=== PATIENT | male | born 1950 | race Caucasian/White ===

== ENCOUNTER 2018-10-07 10:49 | Inpatient (IN) | payer MEDICARE, BC ==
[~2018-10-07] VITALS: Ht 172.7 cm; Wt 111.6 kg
--- NOTE | ~2018-10-07 | HEMODYNAMI ---
PATIENT:SANG ANAND MEDICAL RECORD: [id number] : 46 LOCATION:[facility] D.2110 ADMISSION DATE: 10/07/18 Generatedon:10/08/20189:41 Patient name: SANG ANAND Patient #: [id number] SSN: [id number] : 1950 Date of study: 10/08/2018 Page: Of Hemodynamic Procedure Report Patient Data Patient Demographics Procedure consent was obtained First Name: SANG Gender: Male Last Name: KIKA : 1950 Middle Initial: ABHIJIT Age: 68 year(s) Patient #: [id number] Race: SSN: [id number] Additional ID: [id number] Contact details Address: [address] [place] [address] State: [place] City: [place] Zip code: [address] Past Medical History Allergies: No known allergies Admission Admission Data Admission Date: 10/07/2018 Admission Time: 12:44 Room #: D.2110 Height (in.): 68 BSA: 2.24 (m2) Height (cm.): 172.72 BMI: 37.54 (kg/m2) Weight (lbs.): 246.92 Weight (kg.): 112 Lab Results Lab Result Date: 10/08/2018 Lab Result Time: 0:00 Biochemistry Name Units Result Min Max BUN mg/dl 25 --(----)-* 7 18 Creatinine mg/dl 1.2 --(---*)-- 0.6 1.3 eGFR ml/min 64.90928 *-(----)-- 90 120 NONAFRICAN CBC Name Units Result Min Max Hematocrit % 40.5 -*(----)-- 42 54 Hemoglobin g/dl 13.8 --(*---)-- 13.5 17.5 Procedure Procedure Types Cath Procedure Diagnostic Procedure C LH w/Coronaries Sedation Charges Moderate Sedation up to 15 minutes PCI Procedure Coronary Stent Coronary Stent Initial Procedure Description Procedure Date Procedure Date: 10/08/2018 Procedure Start Time: 9:11 Procedure End Time: 9:40 Procedure Staff Name Function Efren Mcintyre RN Nurse Wil Bradshaw RN [employer] Crm Developer Marj Stiles RT Monitor Mamadou Harvey RT Scrub Karie Buck RT Scrub Pepe Coulter MD Performing Physician Procedure Data Cath Procedure Fluoroscopy Diagnostic fluoroscopy Total fluoroscopy Time: 6.3 time: 6.3 min min Diagnostic fluoroscopy Total fluoroscopy dose: dose: 1783 mGy 1783 mGy Contrast Material Contrast Material Type Amount (ml) Isovue 300 133 Entry Location Entry Primary Successful Side Size Upsize Upsize Entry Closure Waddell ccessful Closure Location (Fr) 1 (Fr) 2 (Fr) Remarks Device Remarks Radial Right 6 Fr Mechanical artery Short Compression Estimated blood loss: 10 ml Diagnostic catheters Device Type Used For End Catheter Placement DIAGNOSTIC David 110cm Procedure 5Fr catheter ([id number]) Procedure Complications No complications Procedure Medications Medication Administration Route Dosage 0.9% NaCl I.V. 100 ml/hr Oxygen etCO2 Nasal cannula 2 l/min Heparin Flush Bag added to field 2 bags (1000units/500ml NS) Lidocaine 2% added to field 20 Radial Cocktail added to field 1 syringe (Verapamil 2mg/Nitro 400mcg/Heparin 1500units) Versed I.V. 2 mg Fentanyl I.V. 100 mcg Radial Cocktail I.A. 1 syringe (Verapamil 2mg/Nitro 400mcg/Heparin 1500units) Heparin Bolus I.V. 49552 units Fentanyl I.V. 50 mcg Plavix P.O. 600 mg Hemodynamics Rest BSA: 2.24 (m2) HGB: 13.8 (g/dl) O2 Consumption: Estimated: 255.58 (ml/min) O2 Co nsumption indexed: Estimated:114.1 (ml/min/m) Heart Rate: 66 (bpm) Pressure Samples Time Site Value (mmHg) Purpose Heart Use Rate(bpm) 9:14 LV 120/-4,12 Snapshot 71 Gradients Valve Time Site Site Mean SEP/DFP Peak To Heart Use 1 2 (mmHg) (sec/min) Peak Rate (mmHg) (bpm) Aortic 9:15 LV AO 70 Snapshots Pre Cath Intra NCS Post Cath Vital Signs Time Heart Resp SPO2 etCO2 NIBP (mmHg) Rhythm Pain Sedation Rate (ipm) (%) (mmHg) Status Level (bpm) 8:54:35 60 14 98 31.4 175/82(150) NSR 0 (11) 10(A) , No pain 8:59:17 65 13 95 0.7 167/73(124) NSR 0 (11) 10(A) , No pain 9:03:49 62 15 95 14.9 146/80(111) NSR 0 (11) 10(A) , No pain 9:08:14 67 12 94 25.4 136/83(112) NSR 0 (11) 10(A) , No pain 9:12:34 62 12 94 39.6 145/83(129) NSR 0 (11) 10(A) , No pain 9:16:46 72 11 94 38.1 114/64(92) NSR 0 (11) 9(A) , No pain 9:21:04 69 12 94 38.9 131/72(114) NSR 0 (11) 9(A) , No pain 9:25:30 66 12 95 38.1 130/69(113) NSR 0 (11) 9(A) , No pain 9:31:04 66 13 96 38.1 136/69(106) NSR 0 (11) 10(A) , No pain 9:35:28 63 10 94 37.4 134/73(95) NSR 0 (11) 10(A) , No pain 9:39:57 67 12 95 39.6 155/67(121) NSR 0 (11) 10(A) , No pain Medications Time Medication Route Dose Verified Delivered Reason Note s Effectiveness by by 8:53:02 0.9% NaCl I.V. 100 Efren Efren Per physician ml/hr Francisco Javier Mcintyre RN RN 8:53:15 Oxygen etCO2 2 l/min Efren Efren for low 02 sats Nasal Lorigan Francisco Javier cannula RN RN 8:53:26 Heparin Flush added 2 bags Efren Efren used for Bag to Lorigan Francisco Javier procedure (1000units/500ml field PROCTOR RN NS) 8:53:42 Lidocaine 2% added 20ml Efren Efren for local to vial Lorigan Lorigan anesthetic field PROCTOR RN 8:53:52 Radial Cocktail added 1 Efren Efren used for (Verapamil to syringe Lorigan Lorigan procedure 2mg/Nitro RN RN 400mcg/Heparin 1500units) 9:07:02 Versed I.V. 2 mg Efren Efren for sedation Francisco Javier Mcintyre RN RN 9:07:14 Fentanyl I.V. 100 mcg Efren Efren for sedation Francisco Javier Mcintyre RN RN 9:13:32 Radial Cocktail I.A. 1 Efren Pepe for (Verapamil syringe Francisco Javier Coulter MD vasodilation 2mg/Nitro RN 400mcg/Heparin 1500units) 9:27:25 Heparin Bolus I.V. 11,000 Efren Efren for units Francisco Javier Mcintyre anticoagulation RN RN 9:31:28 Fentanyl I.V. 50 mcg Efren Efren for sedation Francisco aJvier Mcintyre RN RN 9:35:51 Plavix P.O. 600 mg Efren Efren for Francisco Javier Mcintyre antiplatelet RN RN therapy Procedure Log Time Note 8:31:17 Signed procedure consent form obtained from patient. 8:31:23 Procedure Status Urgent Heart Cath (IP). 8:31:54 Time tracking: Regular hours (M-F 7:00 - 5:00) 8:31:58 Plan of Care:Hemodynamics will remain stable., Cardiac rhythm will remain stable., Comfort level will be maintained., Respiratory function will remain adequate., Patient/ family verbilizes understanding of procedure., Procedure tolerated without complication., Recovers from procedure without complications.. 8:32:12 Wil Bradshaw RN sent for patient. Start room use. 8:38:05 Lab Result : eGFR NONAFRICAN 64.30470 ml/min 8:38:05 Lab Result : Creatinine 1.2 mg/dl 8:38:05 Lab Result : BUN 25 mg/dl 8:38:05 Lab Result : Hematocrit 40.5 % 8:38:05 Lab Result : Hemoglobin 13.8 g/dl 8:38:15 Patient allergic to No known allergies 8:38:27 Patient Weight : 246.92 lbs 8:38:32 Patient Height : 68 inches 8:45:54 Patient received from Med II to CCL 1 Alert and oriented. Tansferred to table in Supine position. 8:45:55 Warm blankets applied, and elliott hugger turned on for patient comfort. 8:45:56 Correct patient and procedure confirmed by team. 8:45:56 ECG and BP/O2 sat monitors applied to patient. 8:50:00 H&P Date Dictated: 10/07/2018 Within 30 days and on chart., H&P Addendum completed by physician on day of procedure. (MUST COMPLETE FOR ALL OUTPATIENTS). 8:50:02 Pre-procedure instructions explained to patient. 8:50:03 Pre-op teaching completed and patient verbalized understanding. 8:50:15 Family in patients room. 8:50:26 Patient NPO since Midnight. 8:50:42 Is patient on blood thinner?No 8:50:44 Patient diabetic? Yes. 8:50:45 If diabetic: On Metformin? No 8:50:52 Previous problem with sedation/anesthesia? No ? 8:51:00 Snore? Yes 8:51:02 Sleep apnea? No 8:51:19 Deviated septum? No 8:51:32 Opens mouth fully? Yes 8:51:33 Sticks out tongue? Yes 8:51:35 Airway obstruction? Yes COPD 8:51:50 Dentures? No ? 8:52:15 Pre procedure: right dorsailis pedis pulse 1+ Palpable, but thready & weak; easily obliterated 8:52:17 Modified Ramesh's test Ulnar < 7 seconds 8:52:19 Patient pain scale 0/10 ?. 8:52:24 IV patent on arrival in right antecubital with 0.9% NaCl at O. 8:52:28 Lab results completed and on chart. 8:52:31 Right Radial & Right Groin area was prepped with chlora-prep and draped in sterile fashion 8:52:32 Alarms reviewed by R. N. 8:52:33 Sharps counted by scrub and verified by R.N. 8:52:40 Use device set Radial Dx or PCI 8:52:41 ACIST Syringe (36956) opened to sterile field. 8:52:48 Bag Decanter () opened to sterile field. 8:52:49 ACIST Hand Control (11939) opened to sterile field. 8:52:49 ACIST Manifold (39468) opened to sterile field. 8:52:50 Tegaderm 4 x 4 (1626W) opened to sterile field. 8:52:50 Medline Cath Pack ([id number]) opened to sterile field. 8:52:53 MBrace Wrist Support ([id number]) opened to sterile field. 8:52:53 NEEDLE Cook 21G 4cm Radial (Q15640) opened to sterile field. 8:52:56 EMERALD Guide Wire (888-312) opened to sterile field. 8:52:56 SHEATH 6FR RAIN (6899267) opened to sterile field. 8:53:02 0.9% NaCl 100 ml/hr I.V. was administered by Efren Mcintyre RN; Per physician; 8:53:04 Vital chart was started 8:53:06 Baseline sample Acquired. 8:53:11 Rhythm: sinus rhythm 8:53:12 Full Disclosure recording started 8:53:15 Oxygen 2 l/min etCO2 Nasal cannula was administered by Efren Mcintyre RN; for low 02 sats; 8:53:26 Heparin Flush Bag (1000units/500ml NS) 2 bags added to field was administered by Efren Mcintyre RN; used for procedure; 8:53:42 Lidocaine 2% 20ml vial added to field was administered by Efren Mcintyre RN; for local anesthetic; 8:53:52 Radial Cocktail (Verapamil 2mg/Nitro 400mcg/Heparin 1500units) 1 syringe added to field was administered by Efren Mcintyre RN; used for procedure; 9:04:38 --------ALL STOP TIME OUT------ 9:04:38 Final Timeout: patient, procedure, and site verified with staff and physician. All members of the team are in agreement. 9:04:39 Right Radial & Right Groin site verified by team. 9:04:43 Fire Safety Assessment: A--An alcohol-based skin anteseptic being used preoperatively., C--Open oxygen or nitrous oxide is being used., D--An ESU, laser, or fiber-optic light is being used. 9:05:04 Physical assessment completed. ASA score P 2 - A patient with mild systemic disease as per Pepe Coulter MD. 9:05:07 2) 60-89 Mildly reduced kidney function, and other findings (as for stage 1) point to kidney disease. 9:05:11 Maximum allowable contrast dose (3.7 X eGFR X 0.75)178 ml. 9:05:14 Sedation plan: IV Moderate Sedation Medication:Versed, Fentanyl 9:05:17 Timer 1 started at 8:55 AM, stopped at 9:05 AM, duration 00:09:45 sec. 9:06:11 Zero performed for pressure channel P1 9:07:02 Versed 2 mg I.V. was administered by Efren Mcintyre RN; for sedation; 9:07:14 Fentanyl 100 mcg I.V. was administered by Efren Mcintyre RN; for sedation; 9:10:40 Procedure started. 9:11:31 Local anesthetic to right radial artery with Lidocaine 2% by Efren Mcintyre RN.INITIAL ACCESS ONLY 9:12:24 A 6 Fr Short sheath was inserted into the Right Radial artery 9:13:14 A DIAGNOSTIC David 110cm 5Fr catheter (333390) was advanced over the wire and used for Procedure. 9:13:32 Radial Cocktail (Verapamil 2mg/Nitro 400mcg/Heparin 1500units) 1 syringe I.A. was administered by Pepe Coulter MD; for vasodilation; 9:14:20 LV gram done using STONE 9:14:22 Injector settings: Ml/sec: 5, Volume: 15, 9:14:54 LV hemodynamics recorded. 9:15:19 EF : 60 % 9:16:57 LCA angiography performed. 9:18:50 RCA angiography performed. 9:22:03 Catheter exchanged over wire. 9:23:09 Proceeding to intervention. 9:23:12 INFLATOR Merit BasixCompak (VW6415) opened to sterile field. 9:23:12 TUBING High Pressure Extension Tubing (Yfn) (GW6934I) opened to sterile field. 9:23:13 BMW 300cm Straight [place] 2 wire (4213762) opened to sterile field. 9:25:17 GUIDE 6FR XBLAD 3.5 catheter ([id number]) opened to sterile field. 9:25:30 6 Fr XBLAD 3.5 guide catheter was inserted over the wire 9:27:25 Heparin Bolus 11,000 units I.V. was administered by Efren Mcintyre RN; for anticoagulation; 9:27:36 BMW 300 wire advanced. 9:29:31 Wire advanced across lesion. 9:31:28 Fentanyl 50 mcg I.V. was administered by Efren Mcintyre RN; for sedation; 9:33:04 Place stent Inflation Number: 1 A PAULA OTW 3.5 x 18 stent ([id number]) was prepped and advanced across the Prox LAD 90. The stent was deployed at 14 DEA for 0:00 (min:sec) 0. 9:33:38 Stent catheter was removed intact over wire. 9:33:53 Wire removed. 9:33:54 Guide catheter removed. 9:34:47 Procedure ended.(Physican Out) 9:34:54 TR BAND Standard (OBY60PVC) opened to sterile field. 9:35:03 Fluoroscopy time 06.30 minutes. 9:35:07 Fluoroscopy dose: 1783 mGy 9:35:07 Flurop Dose total: 1783 9:35:13 Dose Area Product 59168 mGy/cm. 9:35:17 Contrast amount:Isovue 300 133ml. 9:35:19 Maximum allowable dose exceeded? No. 9:35:22 Sharps counted by scrub and verified by R.N. 9:35:51 Plavix 600 mg P.O. was administered by Efren Mcintyre RN; for antiplatelet therapy; 9:36:02 Sheath removed intact; hemostasis achieved with Mechanical Compression to the Right Radial artery. 9:36:15 TR band inflated with 9cc of air. 9:36:21 Post-procedure physical assessment completed. ASA score P 2 - A patient with mild systemic disease as per Pepe Coulter MD. 9:36:26 Post procedure rhythm: sinus rhythm 9:36:29 Estimated blood loss: 10 ml 9:36:30 Post procedure instruction explained to patient.Patient verbalizes understanding. 9:36:30 Patient needs reinforcement of post procedure teaching. 9:37:15 Procedure type changed to Cath procedure, Diagnostic procedure, LHC, LHC w/Coronaries, Sedation Charges, Moderate Sedation up to 15 minutes, PCI procedure, Coronary Stent, Coronary Stent Initial 9:38:07 Procedure and supply charges have been captured, reviewed, submitted and are correct. 9:38:10 Procedure Complication : No complications 9:39:57 Vital chart was stopped 9:39:57 See physician's report for complete and final results. 9:39:59 Report given to Med II. 9:40:02 Patient transfered to Med II with Bed. 9:40:04 Procedure ended. 9:40:04 Full Disclosure recording stopped 9:40:14 End room use (Document Last) Intervention Summary Intervention Notes Time ActionType Lesion and Equipment Action# Pressure Duration Attributes Used 9:33:04 Place stent Prox LAD PAULA OTW 3.5 1 14 00:00 x 18 stent ([id number]) Device Usage Item Name Manufacture Quantity Catalog Hospital Part Current Mini mal Lot# / Number Charge Number Stock Stock Serial# Code ACIST Syringe Acist 1 80573 176066 802849 557627 20 (53988) Medical Systems Inc Bag Decanter Microtek 1 2001S 007209 05347 030270 5 (2001S) Medical Inc. ACIST Hand Acist 1 00538 891826 254653 864123 5 Control Medical (94310) Systems Inc ACIST Acist 1 18803 278404 242573 757055 5 Manifold Medical (61401) Systems Inc Tegaderm 4 x 3M 1 1626W 162337 858253 869409 5 4 (1626W) Medline Cath Medline 1 [id number] 399247 36874 784505 5 Pack ([id number]) MBrace Wrist Advanced 1 140-0250-00 132776 22824 007134 5 Support Vascular (101410272) Dynamics NEEDLE Cook [place] Medical 1 U68889 102210 894336 072819 5 21G 4cm Radial (Q17378) EMERALD Guide Cardinal 1 502-455 872607 493226 711826 5 Wire Health (502-455) SHEATH 6FR Cardinal 1 5725985 650437 1042251 689136 5 [facility] (7357187) DIAGNOSTIC Terumo 1 40-5023 007188 263823 313736 5 David 110cm 5Fr catheter (550670) INFLATOR Merit 1 JX0764 848344 667351 754195 15 Merit Medical BasixCompak (FQ4749) TUBING High Merit 1 FY7851B 894863 92146 576652 10 Pressure Medical Extension Tubing (Coulter) (ZO6671G) BMW 300cm Macdonald 1 9659165 680910 330721 565086 5 Straight Vascular [place] 2 wire (8201955) GUIDE 6FR Cardinal 1 75518773 858433 353307 683236 10 XBLAD 3.5 Health catheter (78232338) PAULA OTW 3.5 Medtronic 1 [id number] 696231 2983805 956218 5 [id number] x 18 stent ([id number]) TR BAND Terumo 1 [id number] 651029 359792 416392 40 Standard (AIL09PUX) Signature Audit [place] Stage Time Signature Unsigned Intra-Procedure 10/08/2018 Marj Stiles 9:41:22 AM RT(R) Signatures Nurse : Efren Mcintyre Signature : RN Date : Time : Monitor : Marj Stiles Signature : RT Date : Time : Performing Physician : Signature : Pepe Coulter MD Date : Time : [address] [place] [address]
[2018-10-07] MEDS ORDERED: ACEBUTOLOL HCL200 MG PO (11:00)
[2018-10-07] MEDS ORDERED: HYTRIN10 MG PO (11:00)
[2018-10-07] MEDS ORDERED: LIPITOR40 MG PO (11:00)
[2018-10-07] MEDS ORDERED: OMEPRAZOLE20 M1 PO (11:00)
[2018-10-07] MEDS ORDERED: ZYLOPRIM100 MG PO (11:01)
[2018-10-07] MEDS ORDERED: COZAAR100 MG PO (11:01)
[2018-10-07] MEDS ORDERED: TRICOR48 MG PO (11:01)
[2018-10-07] MEDS ORDERED: LYRICA100 MG PO (11:01)
[2018-10-07] MEDS ORDERED: HUMULIN R100 U/ML SC (11:02)
[2018-10-07 11:16] LABS: BASOPHILS 0.2 % (0-2); EOSINOPHILS 1.7 % (0-7); HEMATOCRIT 41.7 % (42.0-54.0); HEMOGLOBIN 14.4 g/dL (13.5-17.5); IMMATURE GRANULOCYTES 0.3 % (0-5); LYMPHOCYTES 26.3 % (15-50); MCH 32.4 pg (26.0-34.0); MCHC 34.5 g/dL (31.0-37.0); MCV 93.7 fL (80.0-100.0); MEAN PLATELET VOLUME 10.5 fL (7.4-10.4); MONOCYTES 8.9 % (2-11); NEUTROPHILS 62.6 % (40-80); PLATELET COUNT 104 10x3/uL (130-400); RBC 4.45 10x6/uL (4.20-6.10); RDW 13.8 % (11.5-14.5)
[2018-10-07 11:24] LABS: APTT 30.2 SECONDS (22.8-39.4); INR 1.08 (0.85-1.17); PROTIME 13.5 SECONDS (11.6-15.0)
[2018-10-07 11:31] LABS: ALBUMIN 3.3 g/dL (3.4-5.0); ALKALINE PHOSPHATASE 73 U/L (46-116); ALT (SGPT) 49 U/L (10-68); BILIRUBIN - TOTAL 0.78 mg/dL (0.2-1.3); CALC OSMOLALITY 294 mosm/kg (275-300); CALCIUM 9.3 mg/dL (8.5-10.1); CARBON DIOXIDE 27.2 mmol/L (21.0-32.0); CHLORIDE - SERUM 107 mmol/L (98-107); CREATININE - SERUM 1.3 mg/dL (0.6-1.3); GLUCOSE 272 mg/dL (74-106); POTASSIUM - SERUM 3.9 mmol/L (3.5-5.1); PROTEIN - SERUM 6.5 g/dL (6.4-8.2); SODIUM 141 mmol/L (136-145); UREA NITROGEN 23 mg/dL (7-18); eGFR NON AFRICAN AMERICAN 58 mL/min (90-120)
[2018-10-07 11:43] LABS: CREATINE KINASE 94 UL (21-232); MAGNESIUM - SERUM 1.7 mg/dL (1.8-2.4)
[2018-10-07 11:44] LABS: TROPONIN-I < 0.017 ng/mL (0.000-0.060)
--- NOTE | 2018-10-07 12:08 | NUR ---
NTG HELD, PT REPORTS NO PAIN AT PRESENT
[2018-10-07 12:51] VITALS: BP 151/75
[2018-10-07 13:01] VITALS: BP 143/61
--- NOTE | 2018-10-07 13:22 | NUR ---
RECEIVED PATIENT TO UNIT VIA WHEELCHAIR FROM ER. PATIENT ADMITTED TO ROOM 2109. PATIETN ACCOMAPANIED BY SPOUSE AND DAUGHTER. CALL LIGHT WITHIN REACH. PATIENT ASSISTED TO BED. NO DISTRESS.
--- NOTE | 2018-10-07 13:37 | NUR ---
FSBS 215. TELEMETRY APPLIED.
--- NOTE | 2018-10-07 14:47 | NUR ---
FSBS 215. 12 UNITS HUMULIN R ADMINISTERED PER SLIDING SCALE.
--- NOTE | 2018-10-07 15:01 | NUR ---
AT BEDSIDE FOR REFERRAL.
--- NOTE | 2018-10-07 15:27 | NUR ---
TELEMETRY REAPPLIED. LEADS FELL OFF WHILE PATIENT UP AMBULATING TO THE RESTROOM. NO DISTRESS.
[2018-10-07 15:47] VITALS: BP 143/61; BMI 37.5
[2018-10-07 16:48] LABS: CKMB 1.5 U/L (0.0-3.6); CREATINE KINASE 84 UL (21-232); TROPONIN-I < 0.017 ng/mL (0.000-0.060)
--- NOTE | 2018-10-07 17:08 | NUR ---
CONSENTS SIGNED AND ON THE CHART FOR HEAR CATH IN THE AM.
[2018-10-07 17:59] VITALS: BP 147/70
--- NOTE | 2018-10-07 19:20 | NUR ---
RECIEVED UP IN B/R. ALERT AND ORIENTED X4. DOES NOT USE CALL LIGHT FOR ASSIST. IV TO RIGHYT HAND SL.. TELEMETRY IN PLACE. EDUCATED ON NPO STATUS WITH VERBAL UNDERSTANDING. DENIES ANY NEEDS AT THIS TIME.
[2018-10-07 20:00] VITALS: BP 153/71
[2018-10-07 23:03] LABS: CREATINE KINASE 86 UL (21-232)
[2018-10-07 23:15] LABS: TROPONIN-I < 0.017 ng/mL (0.000-0.060)
[2018-10-08] VITALS: BP 129/69
[2018-10-08 04:00] VITALS: BP 163/77
[2018-10-08 05:40] LABS: BASOPHILS 0.1 % (0-2); EOSINOPHILS 1.3 % (0-7); HEMATOCRIT 40.5 % (42.0-54.0); HEMOGLOBIN 13.8 g/dL (13.5-17.5); IMMATURE GRANULOCYTES 0.3 % (0-5); LYMPHOCYTES 21.1 % (15-50); MCH 32.1 pg (26.0-34.0); MCHC 34.1 g/dL (31.0-37.0); MCV 94.2 fL (80.0-100.0); MEAN PLATELET VOLUME 10.9 fL (7.4-10.4); NEUTROPHILS 66.2 % (40-80); PLATELET COUNT 111 10x3/uL (130-400); WBC 6.7 10x3/uL (4.8-10.8)
[2018-10-08 06:02] LABS: CALC OSMOLALITY 298 mosm/kg (275-300); CALCIUM 9.1 mg/dL (8.5-10.1); CARBON DIOXIDE 26.6 mmol/L (21.0-32.0); CHLORIDE - SERUM 107 mmol/L (98-107); CKMB 1.3 U/L (0.0-3.6); CREATINE KINASE 80 UL (21-232); CREATININE - SERUM 1.2 mg/dL (0.6-1.3); GLUCOSE 271 mg/dL (74-106); SODIUM 143 mmol/L (136-145); TROPONIN-I < 0.017 ng/mL (0.000-0.060); UREA NITROGEN 25 mg/dL (7-18); eGFR NON AFRICAN AMERICAN 64 mL/min (90-120)
[2018-10-08 08:30] VITALS: BP 145/68
--- NOTE | 2018-10-08 08:44 | NUR ---
PRE-OP MEDS GIVEN AT THIS TIME. PT TO ROLL TUBE SETTER VIA BED, NAD NOTED.
--- NOTE | 2018-10-08 10:07 | NUR ---
RECEIVED PT BACK TO ROOM, 2109, PT STILL A LITTLE DROWSY BUT EASILY AROUSES TO VOICE. VITAL SIGNS STABLE, PLACED ON FREQUENT VITAL SIGNS. TR BAND TO RT WRIST, DRESSING CDI. PT DENIES ANY NEEDS AT THIS TIME. CALL LIGHT IN REACH, NAD NOTED, WILL CONTINUE TO MONTIOR.
[2018-10-08 12:06] VITALS: BP 143/70
--- NOTE | 2018-10-08 12:27 | NUR ---
BLOOD SUGAR OF 380, 24UNITS GIVEN PER S/S. ALSO GAVE 80UNITS OF LANTUS. PT RESTING COMFORTABLY IN BED, NO CHANGES FROM PREVIOUS ASSESSMENT TO RT WRIST. TR BAND IN PLACE. PT DENIES, ANY NEEDS AT THIS TIME. CALL LIGHT IN REACH, FAMILY AT BEDSIDE, NAD NOTED, WILL CONTINUE TO MONITOR.
[2018-10-08 13:47] VITALS: Ht 172.7 cm; Wt 111.6 kg
[2018-10-08] MEDS ORDERED: PLAVIX75 MG PO (14:21)
[2018-10-08] MEDS ORDERED: PROTONIX20 MG PO (14:22)
--- NOTE | 2018-10-08 14:29 | NUR ---
TR BAND REMOVED COMPLETELY, NO BLEEDING NOTED. PLACED 2X2 AND COVERED WITH BANDADE. PT RESTING COMFORTABLY, DENIES ANY NEEDS AT THIS TIME. CALL LIGHT IN REACH, NAD NOTED, WILL CONITNUE TO MONITOR.
--- NOTE | 2018-10-08 16:11 | NUR ---
PROVIDED VERBAL AND WRITTEN DISCHARGE TEACHING TO PT AND FAMILY AT BEDSIDE, ALL VERBALIZED UNDERSTANDING REGARDING TEACHING. D/C RT AC IV WITH CATHETER TIP INTACT. BLOOD SUGAR OF 318, GAVE 20UNITS OF INSULIN PER S/S. PT WANTS TO EAT DINNER AND THEN WILL NOTIFY THIS NURSE WHEN READY FOR WHEELCHAIR.
--- NOTE | 2018-10-08 17:33 | NUR ---
PT LEFT UNIT VIA WHEELCHAIR, WITH ALL BELONGINGS, ACCOMPANIED BY FAMILY, NAD NOTED.
--- NOTE | 2018-10-08 18:02 | MORECARE ---
CASE MANAGEMENT DISCHARGE SUMMARY PATIENT: SANG ANAND UNIT: [id number] ADM DATE: 10/07/18 AGE: 68 : [birth year] SEX: M ROOM/BED: D.2110 AUTHOR: CHUYITA,DOC PHYSICIAN: REFERRING PHYSICIAN: SANG FERRIS MD DATE OF SERVICE: 10/08/18 Discharge Plan Patient Name: SANG ANAND Facility: [facility]:[place] : 1950 Planned Disposition: Home Anticipated Discharge Date: 10/08/18 Discharge Date: 10/08/2018 Expected LOS: 1 Initial Reviewer: [email or web address] Initial Review Date: 10/08/2018 Generated: 10/08/18 7:01 pm Comments DCP- Discharge Planning Updated by [email or web address]: Arturo Sy on 10/08/18 4:[address] Patient Name: SANG ANAND Admission Status: ER Accout number: [id number] Admission Date: 10-07-2018 : 1950 Admission Diagnosis: Attending: SANG FERRIS Current LOS: 1 Anticipated DC Date: 10-08-2018 Planned Disposition: Home Primary Insurance: MEDICARE A & B Discharge Planning Comments: CM MET WITH PT IN ROOM TO DISCUSS DISCHARGE PLANNING AND NEEDS. SANG ANAND provided verbal consent to discuss current and ongoing needs with/in the presence of: SPOUSE, MARGARETTE. PT REPORTS LIVING AT HOME INDEPENDENTLY WITH HIS . PT HAS NO MEDICAL EQUIPMENT AND NO OUTSIDE SERVICES ASSISTING IN THE HOME. CM DISCUSSED AVAILABILITY OF HOME HEALTH, REHAB SERVICES AND MEDICAL EQUIPMENT. PT DENIES DISCHARGE NEEDS, REPORTS HIS WILL PICK HIM UP FOR DISCHARGE HOME. Hematology Nurse Educator: Arturo Sy DCPIA - Discharge Planning Initial Assessment Updated by [email or web address]: Arturo Sy on 10/08/18 5:56 pm * Is the patient Alert and Oriented? Yes * How many steps to enter\exit or inside your home? NONE * PCP DR. CID * Pharmacy [facility] * Preadmission Environment Home with Family * ADLs Independent * Equipment None * Other Equipment NO MEDICAL EQUIPMENT PROVIDER PREFERENCE * List name and contact numbers for known caregivers / representatives who currently or will assist patient after discharge: MARGARETTE ANAND, SPOUSE, * Verbal permission to speak to the caregivers and representatives has been obtained from the patient. Yes * Community resources currently utilized None * Please name any agencies selected above. NONE * Additional services required to return to the preadmission environment? No * Can the patient safely return to the preadmission environment? Yes * Has this patient been hospitalized within the prior 30 days at any hospital? No Patient Name: SANG ANAND Page 60218 at 1802 All edits/amendments must be made on the electronic document DICTATION DATE: 10/08/181800 VISION MIXER: [email or web address] 10/08/181800 RPT#: [id number] DC DATE:10/08/18 STATUS: DIS IN [facility] [address] [place] [address] END OF REPORT
== END 2018-10-08 17:41 | disposition home or self-care (01) | DRG 247 ==
LOC: D.ER 10:49 → D.M2 12:44
PROVIDERS: Emergency Medicine; Internal Medicine Cardiovascular Disease; ADMIT Family Medicine; ATTEND Family Medicine
PROC: B2111ZZ Fluoroscopy of Multiple Coronary Arteries using Low Osmolar Contrast (ICD-10-PCS; 2018-10-08)
PROC: B2151ZZ Fluoroscopy of Left Heart using Low Osmolar Contrast (ICD-10-PCS; 2018-10-08)
PROC: 027034Z Dilation of Coronary Artery, One Artery with Drug-eluting Intraluminal Device, Percutaneous Approach (ICD-10-PCS; principal; 2018-10-08 08:32)
PROC: 4A023N7 Measurement of Cardiac Sampling and Pressure, Left Heart, Percutaneous Approach (ICD-10-PCS; 2018-10-08 08:32)
DX: I25.110 Atherosclerotic heart disease of native coronary artery with unstable angina pectoris (principal); J98.11 Atelectasis; E11.9 Type 2 diabetes mellitus without complications; Z79.4 Long term (current) use of insulin; I45.10 Unspecified right bundle-branch block; I49.3 Ventricular premature depolarization; I10 Essential (primary) hypertension; E78.5 Hyperlipidemia, unspecified; R00.8 Other abnormalities of heart beat

== ENCOUNTER 2019-10-31 06:44 | Day surgery (SDC) | payer MEDICARE, BC ==
[~2019-10-31] VITALS: Ht 170.2 cm; Wt 111.5 kg
--- NOTE | ~2019-10-31 | HEMODYNAMI ---
PATIENT:SANG ANAND MEDICAL RECORD: [id number] : 46 LOCATION:D.CAT ADMISSION DATE: 10/31/19 Generatedon:10/31/20199:18 Patient name: SANG ANAND Patient #: [id number] SSN: [id number] : 1950 Date of study: 10/31/2019 Page: Of Hemodynamic Procedure Report Patient Data Patient Demographics Procedure consent was obtained First Name: SANG Gender: Male Last Name: KIKA : 1950 [facility] Initial: ABHIJIT Age: 69 year(s) Patient #: [id number] Race: SSN: [id number] Additional ID: [id number] Contact details [address]: [address] [place] [address] State: [place] City: [place] Zip code: [address] Past Medical History Allergies Allergen Reaction Date Comments Reported Other allergy 10/31/2019 NKDA Admission Admission Data Admission Date: 10/31/2019 Admission Time: 6:44 Arrival Date: 10/31/2019 Arrival Time: 0:00 Height (in.): 68 BSA: 2.2 (m2) Height (cm.): 172.72 BMI: 36.19 (kg/m2) Weight (lbs.): 238 Weight (kg.): 107.95 Lab Results Lab Result Date: 10/31/2019 Lab Result Time: 0:00 Biochemistry Name Units Result Min Max BUN mg/dl 22 --(----)-* 7 18 Creatinine mg/dl 1.2 --(---*)-- 0.6 1.3 eGFR ml/min 63 *-(----)-- 90 120 NONAFRICAN CBC Name Units Result Min Max Hematocrit % 41 -*(----)-- 42 54 Hemoglobin g/dl 13.7 --(*---)-- 13.5 17.5 Procedure Procedure Types Cath Procedure Diagnostic Procedure [facility] w/Coronaries Sedation Charges Moderate Sedation up to 30 minutes Procedure Description Procedure Date Procedure Date: 10/31/2019 Procedure Start Time: 8:49 Procedure End Time: 9:15 Procedure Staff Name Function Pepe Coulter MD Performing Physician Chayito Granda RT Scrub Laya August RT Monitor Marj Stiles RT Erecting Crane Operator Nika Amador RN Nurse Indication CAD Procedure Data Cath Procedure Fluoroscopy Diagnostic fluoroscopy Total fluoroscopy Time: 2.4 time: 2.4 min min Diagnostic fluoroscopy Total fluoroscopy dose: 915 dose: 915 mGy mGy Contrast Material Contrast Material Type Amount (ml) Isovue 300 57 Entry Location Entry Primary Successful Side Size Upsize Upsize Entry Closure Succe ssful Closure Location (Fr) 1 (Fr) 2 (Fr) Remarks Device Remarks Femoral Right 5 Fr Perclose artery ProGlide Estimated blood loss: 5 ml Diagnostic catheters Device Type Used For End Catheter Placement MULTIPACK JL 4.0 5Fr Left Coronary catheter Angiography MULTIPACK 3DRC 5Fr Right Coronary catheter Angiography MULTIPACK Pigtail 5 Fr LV Angiography catheter Procedure Complications No complications Procedure Medications Medication Administration Route Dosage Oxygen NC 2 l/min Lidocaine 2% added to field 20 Heparin Flush Bag added to field 2 bags (1000units/500ml NS) 0.9% NaCl I.V. 100 ml/hr Versed I.V. 1 mg Fentanyl I.V. 50 mcg Versed I.V. 1 mg Fentanyl I.V. 50 mcg Hemodynamics Rest BSA: 2.2 (m2) HGB: 13.7 (g/dl) O2 Consumption: Estimated: 243.92 (ml/min) O2 Con sumption indexed: Estimated:110.87 (ml/min/m) Heart Rate: 58 (bpm) Pressure Samples Time Site Value (mmHg) Purpose Heart Use Rate(bpm) 8:56 LV 123/0,10 Snapshot 67 Gradients Valve Time Site Site Mean SEP/DFP Peak To Heart Use 1 2 (mmHg) (sec/min) Peak Rate (mmHg) (bpm) Aortic 8:57 LV AO 65 Snapshots Pre Cath Intra NCS Post Cath Vital Signs Time Heart Resp SPO2 etCO2 NIBP (mmHg) Rhythm Pain Sedation Rate (ipm) (%) (mmHg) Status Level (bpm) 8:21:13 57 17 99 34.4 147/73(118) NSR 0 (11) 10(A) , No pain 8:25:33 59 13 95 20.2 137/72(108) NSR 0 (11) 10(A) , No pain 8:29:51 60 12 95 34.5 127/68(95) NSR 0 (11) 10(A) , No pain 8:34:05 59 23 95 36 136/68(112) NSR 0 (11) 10(A) , No pain 8:38:21 61 17 95 23.2 117/69(97) NSR 0 (11) 10(A) , No pain 8:42:33 60 14 95 19.4 124/64(104) NSR 0 (11) 10(A) , No pain 8:46:45 60 13 93 38.2 117/70(87) NSR 0 (11) 10(A) , No pain 8:50:53 63 14 96 37.4 123/74(106) NSR 0 (11) 9(A) , No pain 8:55:05 64 12 95 13.5 128/69(104) NSR 0 (11) 9(A) , No pain 8:59:17 61 14 96 28.4 131/73(105) NSR 0 (11) 9(A) , No pain 9:03:31 61 13 96 23.9 137/72(101) NSR 0 (11) 9(A) , No pain 9:07:47 61 12 96 12.7 125/74(106) NSR 0 (11) 10(A) , No pain 9:11:56 58 16 97 31.5 128/73(101) NSR 0 (11) 10(A) , No pain Medications Time Medication Route Dose Verified Delivered Reason Notes Effec tiveness by by 8:20:06 Oxygen NC 2 Pepe Nika for low 02 l/min Yfn Amador sats RN 8:20:16 Lidocaine 2% added 20ml Pepe Pepe for local to vial Yfn Coulter MD anesthetic field 8:20:26 Heparin Flush added 2 Pepe Pepe used for Bag to bags Yfn Coulter MD procedure (1000units/500ml field NS) 8:20:41 0.9% NaCl I.V. 100 Pepe Nika used for ml/hr Yfn Amador dining chair seat cushion trimmer 8:46:58 Versed I.V. 1 mg Pepe Nika for Yfn Amador sedation RN 8:47:06 Fentanyl I.V. 50 Pepe Nika for mcg Yfn Amador sedation RN 8:51:20 Versed I.V. 1 mg Pepe Nika for Yfn Amador sedation RN 8:51:36 Fentanyl I.V. 50 Pepe Nika for mcg Yfn Amador sedation captain's assistant Log Time Note 7:59:47 Informed consent obtained and on chart 8:05:43 Indication : CAD 8:05:53 Arrival Date: 10/31/2019 12:00:00 AM 8:06:07 Patient Height : 68 inches 8:06:10 Patient Weight : 238 lbs 8:06:42 Procedure Status Elective Heart Cath (OP). 8:06:45 Time tracking: Regular hours (M-F 7:00 - 5:00) 8:08:48 Patient allergic to Other allergyNKDA 8:08:57 H&P Date Dictated: 10/31/2019 H&P Addendum completed by physician on day of procedure. (MUST COMPLETE FOR ALL OUTPATIENTS), New H&P dictated by physician.. 8:09:08 Plan of Care:Hemodynamics will remain stable., Cardiac rhythm will remain stable., Comfort level will be maintained., Respiratory function will remain adequate., Patient/ family verbilizes understanding of procedure., Procedure tolerated without complication., Recovers from procedure without complications.. 8:09:29 Chayito PATEL(R) sent for patient. Start room use. 8:12:32 Patient received from Pre/Post Procedure Room to [facility] 2 Alert and oriented. Tansferred to table in Supine position. 8:12:39 Warm blankets applied, and elliott hugger turned on for patient comfort. 8:12:40 Correct patient and procedure confirmed by team. 8:12:41 ECG and BP/O2 sat monitors applied to patient. 8:19:55 Vital chart was started 8:20:06 Oxygen 2 l/min NC was administered by Nika Amador RN; for low 02 sats; Verbal order read back and verified. 8:20:16 Lidocaine 2% 20ml vial added to field was administered by Pepe Coulter MD; for local anesthetic; Verbal order read back and verified. 8:20:26 Heparin Flush Bag (1000units/500ml NS) 2 bags added to field was administered by Pepe Coulter MD; used for procedure; Verbal order read back and verified. 8:20:41 0.9% NaCl 100 ml/hr I.V. was administered by Nika Amador RN; used for procedure; Verbal order read back and verified. 8:21:25 Baseline sample Acquired. 8::29 Rhythm: sinus bradycardia 8::30 8::31 Full Disclosure recording started 8::31 Pre-procedure instructions explained to patient. 8:21:32 Pre-op teaching completed and patient verbalized understanding. 8:21:36 Family in patients room. 8::41 Patient NPO since Midnight. 8:22:20 Is patient on blood thinner?Yes 8:22:25 ACC The patient was administered the following blood thiners within the last 24 hours: ACCEffient 8:22:27 Patient diabetic? No. 8:22:30 Previous problem with sedation/anesthesia? No ? 8:22:31 Snore? Yes 8:22:34 Sleep apnea? No 8:22:35 Deviated septum? No 8:22:40 Opens mouth fully? Yes 8:22:41 Sticks out tongue? Yes 8:23:08 Airway obstruction? No ? 8:23:11 Dentures? No ? 8:23:22 Pre procedure: right dorsailis pedis pulse 1+ Palpable, but thready & weak; easily obliterated 8:24:29 IV patent on arrival in left forearm with 0.9% NaCl at [facility]. 8:24:56 Right groin area was prepped with chlora-prep and draped in sterile fashion 8::57 Alarms reviewed by Gulshan N. 8::57 Sharps counted by scrub and verified by R.N. 8:27:23 Lab Result : BUN 22 mg/dl 8::23 Lab Result : Creatinine 1.2 mg/dl 8::23 Lab Result : eGFR NONAFRICAN 63 ml/min 8:27:23 Lab Result : Hemoglobin 13.7 g/dl 8:27:23 Lab Result : Hematocrit 41 % 8:27:34 Lab results completed and on chart. 8:27:51 Use device set Femoral Dx 8:27:53 ACIST Syringe (38871) opened to sterile field. 8:27:54 Bag Decanter (2002S) opened to sterile field. 8:27:55 Medline Cath Pack ([id number]) opened to sterile field. 8:27:57 ACIST Hand Control (69525) opened to sterile field. 8:27:57 ACIST Manifold (70135) opened to sterile field. 8:27:59 DIAGNOSTIC Multipack 5Fr catheter set ([id number]) opened to sterile field. 8:28:00 Tegaderm 4 x 4 (1626W) opened to sterile field. 8:28:02 SHEATH 5FR Notrees (PRI187) opened to sterile field. 8:28:02 EMERALD Guide Wire (821-057) opened to sterile field. 8:31:19 Risk of Mortality: 0.1 8:31:23 Risk of blood transfusion: 0.2 8:31:27 Risk of BERNA: 0.5 8:33:43 Zero performed for pressure channel P1 8:45:18 Physician arrived 8:45:19 --------ALL STOP TIME OUT------ 8:45:21 Final Timeout: patient, procedure, and site verified with staff and physician. All members of the team are in agreement. 8:45:24 Right groin site verified by team. 8:45:29 Fire Safety Assessment: A--An alcohol-based skin anteseptic being used preoperatively., C--Open oxygen or nitrous oxide is being used., D--An ESU, laser, or fiber-optic light is being used. 8:45:34 Physical assessment completed. ASA score P 2 - A patient with mild systemic disease as per Pepe Coulter MD. 8:46:24 2) 60-89 Mildly reduced kidney function, and other findings (as for stage 1) point to kidney disease. 8:46:34 Maximum allowable contrast dose (3.7 X eGFR X 0.75)175 ml. 8:46:40 Sedation plan: IV Moderate Sedation Medication:Versed, Fentanyl 8:46:58 Versed 1 mg I.V. was administered by Nika Amador RN; for sedation; Verbal order read back and verified. 8:47:06 Fentanyl 50 mcg I.V. was administered by Nika Amador RN; for sedation; Verbal order read back and verified. 8:48:37 Procedure started. 8:49:26 Local anesthetic to right femoral artery with Lidocaine 2% by Pepe Coulter MD.INITIAL ACCESS ONLY 8:50:30 A 5 Fr sheath was inserted into the Right Femoral artery 8:50:46 A MULTIPACK JL 4.0 5Fr catheter was advanced over the wire and used for Left Coronary Angiography. 8:51:20 Versed 1 mg I.V. was administered by Nika Amador RN; for sedation; Verbal order read back and verified. 8:51:36 Fentanyl 50 mcg I.V. was administered by Nika Amador RN; for sedation; Verbal order read back and verified. 8:51:37 LCA angiography performed. 8:51:43 Injector settings: Ml/sec: 3, Volume: 6, 8:53:58 Catheter removed. 8:54:06 A MULTIPACK 3DRC 5Fr catheter was advanced over the wire and used for Right Coronary Angiography. 8:54:49 RCA angiography performed. 8:55:05 Injector settings: Ml/sec: 3, Volume: 6, 8:55:17 Catheter removed. 8:55:36 A MULTIPACK Pigtail 5 Fr catheter was advanced over the wire and used for LV Angiography. 8:56:06 Injector settings: Ml/sec: 5, Volume: 15, 8:56:09 LV gram done using STONE 8:57:23 EF : 45 % 8:57:37 LV hemodynamics recorded. 8:58:00 Catheter removed. 8:59:12 PERCLOSE OPPENED TO STERILE FIELD FROM TRUNK STOCK PER HUGO FROM SHARP. 8:59:37 Fluoroscopy time 02.40 minutes. 8:59:48 Flurop Dose total: 915 8:59:48 Fluoroscopy dose: 915 mGy 8:59:57 Dose Area Product 37074 mGy/cm. 9:07:28 Sheath removed intact; hemostasis achieved with Perclose ProGlide to the Right Femoral artery. 9:11:54 Procedure ended.(Physican Out) 9:12:22 Contrast amount:Isovue 300 57ml. 9:12:25 Maximum allowable dose exceeded? No. 9:12:27 Sharps counted by scrub and verified by R.N. 9:12:34 Post-op/insertion site Right Femoral artery dressed using a 4 x 4 and Tegaderm. 9:12:41 Post-procedure physical assessment completed. ASA score P 2 - A patient with mild systemic disease as per Pepe Coulter MD. 9:12:59 Post procedure rhythm: unchanged. 9:13:04 Estimated blood loss: 5 ml 9:13:06 Post procedure instruction explained to patient.Patient verbalizes understanding. 9:13:07 Patient needs reinforcement of post procedure teaching. 9:13:58 Procedure type changed to Cath procedure, Diagnostic procedure, [facility] w/Coronaries, Sedation Charges, Moderate Sedation up to 30 minutes 9:14:01 Procedure and supply charges have been captured, reviewed, submitted and are correct. 9:14:32 Procedure Complication : No complications 9:14:39 Vital chart was stopped 9:14:52 [facility] Findings: mild to moderate CAD (<70%) 9:14:54 See physician's report for complete and final results. 9:14:57 Report given to Pre/Post Procedure Room. 9:15:03 Patient transfered to Pre/Post Procedure Room with Stretcher. 9:15:06 Procedure ended. 9:15:06 Full Disclosure recording stopped Device Usage Item Name Manufacture Quantity Catalog Hospital Part Current Minimal L ot# / Number Charge Number Stock Stock Serial# Code ACIST Acist 1 72069 [id number] 117828 [id number] 20 Syringe Medical (46408) Systems Inc Bag Microtek 1 450916 73026 859327 5 Decanter Medical Inc. () Medline Medline 1 [id number] 882988 16924 685056 5 Cath Pack ([id number]) ACIST Hand Acist 1 43081 578289 945915 766451 5 Control Medical (31851) Systems Inc ACIST Acist 1 20691 744029 149796 069694 5 Manifold Medical (61500) Systems Inc DIAGNOSTIC Cardinal 1 [id number] 892378 84770 913649 30 [facility] Mape 5Fr catheter set (GU8702) Tegaderm 4 3M 1 1626W [id number] 623980 412272 5 x 4 (1626W) SHEATH 5FR Terumo 1 [id number] 115024 974939 285011 5 Notrees (SOI610) EMERALD Cardinal 1 727-382 190105 984560 294686 5 Guide Wire Health (800-565) MULTIPACK Cardinal 1 252192 5 JL 4.0 5Fr Health catheter MULTIPACK Cardinal 1 [id number] 5 3DRC 5Fr Health catheter MULTIPACK Cardinal 1 262160 5 Pigtail 5 Health Fr catheter Signature Audit [place] Stage Time Signature Unsigned Intra-Procedure 10/31/2019 Laya 9:15:46 AM Mariangel RT(R) (CV) Intra-Procedure 10/31/2019 Nika 9:18:11 AM Perry PROCTOR Intra-Procedure 10/31/2019 Pepe Coulter MD 9:18:41 AM Signatures Performing Physician : Signature : Pepe Coulter MD Date : Time : Monitor : Laya Signature : Mariangel RT Date : Time : Nurse : Nika Signature : Perry RN Date : Time : [facility] [address] [place] [address]
[~2019-10-31 06:44] MED LIST: ACEBUTOLOL HCL200 MG PO; COZAAR100 MG PO; HUMULIN R100 U/ML SC; HYTRIN10 MG PO; LIPITOR40 MG PO; LYRICA100 MG PO; OMEPRAZOLE20 M1 PO; PLAVIX75 MG PO; PROTONIX20 MG PO; TRICOR48 MG PO; ZYLOPRIM100 MG PO
[2019-10-31] MEDS ORDERED: EFFIENT10 MG PO (07:38)
[2019-10-31] MEDS ORDERED: ALDACTONE25 MG PO (07:38)
[2019-10-31] MEDS ORDERED: ENTRESTO 49 MG1 EACH PO (07:39)
[2019-10-31 07:54] VITALS: BP 143/68; Ht 170.2 cm; Wt 111.5 kg
[2019-10-31 08:03] LABS: BASOPHILS 0.1 % (0-2); EOSINOPHILS 1.2 % (0-7); HEMOGLOBIN 13.7 g/dL (13.5-17.5); IMMATURE GRANULOCYTES 0.3 % (0-5); LYMPHOCYTES 21.2 % (15-50); MCH 31.9 pg (26.0-34.0); MCHC 33.4 g/dL (31.0-37.0); MCV 95.3 fL (80.0-100.0); MEAN PLATELET VOLUME 10.2 fL (7.4-10.4); MONOCYTES 8.9 % (2-11); NEUTROPHILS 68.3 % (40-80); PLATELET COUNT 126 10x3/uL (130-400); RDW 13.2 % (11.5-14.5); WBC 6.9 10x3/uL (4.8-10.8)
[2019-10-31 08:19] LABS: ANION GAP 13.4 mmol/L (8-16); CALCIUM 8.7 mg/dL (8.5-10.1); CARBON DIOXIDE 22.7 mmol/L (21.0-32.0); CREATININE - SERUM 1.2 mg/dL (0.6-1.3); LDL-HDL RATIO 1.7 ratio (1.5-3.5); POTASSIUM - SERUM 4.1 mmol/L (3.5-5.1)
--- NOTE | 2019-10-31 09:21 | NUR ---
PT ARRIVED BY STRETCHER. PLACED ON MONITORS. ASSESSMENT COMPLETED. VSS. FAMILY AT BEDSIDE. CALL LIGHT WITHIN REACH.
--- NOTE | 2019-10-31 09:36 | NUR ---
RIGHT GROIN DRESSING C/D/I. NO S/S OF HEMATOMA NOTED. CALL LIGHT WITHIN REACH. VSS AT THIS TIME.
--- NOTE | 2019-10-31 10:06 | NUR ---
RIGHT GROIN DRESSING C/D/I. NO S/S OF HEMATOMA NOTED. CALL LIGHT WITHIN REACH. VSS AT THIS TIME. PT DENIES NAUSEA/PAIN.
--- NOTE | 2019-10-31 10:30 | NUR ---
RIGHT GROIN DRESSING C/D/I. NO S/S OF HEMATOMA NOTED. CALL LIGHT WITHIN REACH. VSS. RIGHT PEDAL PULSE PALPABLE. HEAD OF BED INC TO 30 DEGREES. TOLERATED WELL. SET UP WITH SANDWICH TRAY AND DRINK AT THIS TIME. DENIES NAUSEA.
--- NOTE | 2019-10-31 11:00 | NUR ---
RIGHT GROIN DRESSING C/D/I. NO S/S OF HEMATOMA NOTED. CALL LIGHT WITHIN REACH. VSS AT THIS TIME. FAMILY AT BEDSIDE. PT RESTING COMFORTABLY.
--- NOTE | 2019-10-31 11:35 | NUR ---
RIGHT GROIN DRESSING C/D/I. NO S/S OF HEMATOMA NOTED. PIV D/C'D WITH CATH TIP INTACT. TOLERATED WELL. DISCUSSED DISCHARGE INSTRUCTIONS WITH PT AND PT'S FAMILY. THEY VOICED UNDERSTANDING. PT INSTRUCTED TO GET UP AND DRESSED AT THIS TIME. FAMILY AT BEDSIDE TO ASSIST.
--- NOTE | 2019-10-31 11:45 | NUR ---
PT AMBULATED TO RESTROOM. VOIDED WITHOUT DIFFICULTY. STEADY GAIT NOTED. RIGHT GROIN DRESSING C/D/I. NO S/S OF HEMATOMA NOTED. PT TAKEN OUT TO VEHICLE BY WHEELCHAIR. NO S/S OF DISTRESS NOTED. ALL BELONGINGS AND PAPERWORK IN HAND.
== END 2019-10-31 11:45 | disposition home or self-care (01) ==
LOC: D.CATH 06:44
PROVIDERS: ATTEND Internal Medicine Cardiovascular Disease
DX: I25.119 Atherosclerotic heart disease of native coronary artery with unspecified angina pectoris (principal); I42.9 Cardiomyopathy, unspecified; I50.9 Heart failure, unspecified